=== PATIENT | female | born 1970 | race Caucasian/White ===

== ENCOUNTER 2018-07-11 11:26 | Observation (INO) | payer OTHER ==
[~2018-07-11 11:26] MED LIST: DEXAMETHASONE SOD PHOS 4 MG/ML VIAL ONE; FAMOTIDINE 20 MG/2 ML VIAL ONE; FENTANYL CITRATE/PF 250 MCG/5 ML INJ. ONE; HYDROmorphone HCL/PF 2 MG/ML VIAL ONE; LACTATED RINGERS 1,000 ML IV.SOLN IV ONE; LIDOCAINE HCL 2% PF 100MG/5ML VIAL IJ ONE; MIDAZOLAM HCL 2 MG/2 ML VIAL ONE; MORPHINE SULFATE 10 MG/ML VIAL ONE; ONDANSETRON HCL/PF 4 MG/ 2ML VIAL ONE; PROPOFOL 200 MG/20 ML VIAL IV ONE; ROCURONIUM BROMIDE 10 MG/ML 5ML VIAL ONE; SCOPOLAMINE HYDROBROMIDE 1.5MG/72HR PATCH TD ONE; SEVOFLURANE 250 ML LIQUID IH ONE; SUGAMMADEX SODIUM 200 MG/2 ML VIAL IV ONE; ceFAZolin SODIUM 1 GM VIAL ONE; fentaNYL CITRATE/PF 100 MCG/2 ML INJ. ONE
[2018-07-11] MEDS ORDERED: LACTATED RINGERS 1,000 ML IV ONE ×2 (11:35→11:47)
[2018-07-11] MEDS ORDERED: SCOPOLAMINE HYDROBROMIDE 1.5MG/72HR PATCH TD ONE (11:47)
[2018-07-11] MEDS ORDERED: FAMOTIDINE 20 MG/2 ML VIAL ONE (11:48)
[2018-07-11] MEDS ORDERED: fentaNYL CITRATE/PF 100 MCG/2 ML INJ. ONE (15:49)
[2018-07-11] MEDS ORDERED: HYDROmorphone HCL/PF 2 MG/ML VIAL ONE (15:58)
[2018-07-11] MEDS ORDERED: MORPHINE SULFATE 10 MG/ML VIAL ONE (16:17)
[2018-07-11] MEDS ORDERED: PROMETHAZINE HCL 25 MG in 0.9 % SODIUM CHLORIDE 50 ML IV PRN (16:55)
[2018-07-11] MEDS ORDERED: ONDANSETRON HCL/PF 4 MG/ 2ML VIAL IVP PRN (16:55)
[2018-07-11] MEDS ORDERED: DIAZEPAM 5 MG TABLET PO PRN (16:55)
[2018-07-11] MEDS ORDERED: diphenhydrAMINE HCL 25 MG TABLET PO PRN (16:55)
[2018-07-11] MEDS ORDERED: LEVALBUTEROL HCL 1.25 MG/3 ML VIAL.NEB IH PRN (16:55)
--- NOTE | 2018-07-11 17:19 | History and Physical Report ---
History of Present Illnes - History of Present Illness Reason for Visit: S/P Lumbar Total Disc Replacement L5S1 History of Present Illness: Patient is a 48-year-old female being admitted observation s/p lumbar total disc replacement of L5S1. She has an extensive history of back pain with numerous treatments including; injections, medications and other interventions. It was decided by patient and surgeon to move forward with lumbar surgical procedure. Patient is lying on her left side in bed- she requesting her Percocet and Gabapentin in combination with stronger narcotics- explained that we would start with her combination and implement Toradol for inflammation. Explained that we would get her up and walk, would try clear liquid diet and advance as tolerated to accomplish goals to discharge home tomorrow. 20:30 pt lying in bed on her side eating- no acute distress- still refusing to get up and walk- stating that she is still in too much pain as she continues to eat- explained the importance of getting up and walking- she states if we give her more pain meds she will try. - Past Medical History Psych: Anxiety, Depression Musculoskeletal: Chronic low back pain, Other (degenerative disc disease) Rheumatologic: Fibromyalgia Endocrine: Hypothyroidism - Past Surgical History Past Surgical History: Hysterectomy, Other (CTR), Tubal Ligation, Other (shoulder) - Past Family History Mother Family History: Other (colon polyps) Father Family History: DM, Hypertension - Past Social History Smoke: No Alcohol: None Drugs: None Lives: With Family Domestic Violence: Negative - Health Maintenance Health Maintenance: Cholesterol, Tetanus Influenza Vaccine: Current for this Influenza Season Pneumonia Vaccine: No Resuscitation Status: Resusciation Status Resuscitation Status Full Code - Unable to Obtain History Unable to Obtain: No Review of Systems - Review of Systems Constitutional: negative: Fever, Chills Eyes: negative: pain, vision change ENT: negative: Ear Pain, Nose Pain, Throat Pain Respiratory: negative: Cough, Shortness of Breath Cardiovascular: negative: Chest Pain, Light Headedness Gastrointestinal: negative: Nausea, Abdominal Pain Genitourinary: negative: Dysuria Musculoskeletal: Back Pain Skin: negative: Rash Neurological: negative: Numbness - Medications/Allergies Allergies/Adverse Reactions: Allergies Allergy/AdvReac Type Severity Reaction Status Date / Time Sulfa (Sulfonamide Allergy Unknown Verified 07/11/18 17:17 Antibiotics) Current Inpatient Medications: Current Inpatient Medications Acetaminophen (Tylenol Extra Strength) 500 mg PO Q4 PRN PRN Reason: for mild pain 1-4/fever Baclofen (Lioresal) 10 mg PO TID [facility] Clonazepam (Klonopin) 0.5 mg PO DAILY [facility] Diazepam (Valium) 5 mg PO Q8H PRN PRN Reason: Anxiety/muscle spasm Diphenhydramine HCl (Benadryl) 25 mg PO Q4 PRN PRN Reason: Itching or Pruritis Gabapentin (Neurontin) 300 mg PO TID [facility] Heparin Sodium (Porcine) (Heparin) 5,000 unit SQ Q12 AGUSTIN Potassium Chloride/Dextrose/Sod Cl ([id number]) 1,000 mls @ 75 mls/hr IV Q12H AGUSTIN Promethazine HCl 25 mg/ Sodium (Chloride) 51 mls @ 600 mls/hr IV Q6 PRN PRN Reason: Nausea / Vomiting Stop: 07/15/18 16:54 Ketorolac Tromethamine (Toradol) 15 mg IVP Q6 PRN PRN Reason: For Mild Pain 1-4 Stop: 07/15/18 16:54 Levalbuterol HCl (Xopenex Inh Soln) 1.25 mg IH Q4H PRN PRN Reason: shortness of breath Miscellaneous (Levothyroxine Sodium [Levothyroxine Sodium]) 75 mcg PO DAILY [facility] Miscellaneous (Liothyronine Sodium [Liothyronine Sodium]) 5 mcg PO DAILY [facility] Ondansetron HCl (Zofran 4 Mg/2 Ml) 4 mg IVP Q6H PRN PRN Reason: Nausea / Vomiting Stop: 07/15/18 16:54 Oxycodone/Acetaminophen (Percocet 5-325 Mg Tablet) 1 each PO Q4 PRN PRN Reason: For pain 1-4 out of 10 Exam - Exam General: Alert, Oriented to Person, Oriented to Place, Oriented to Time, Moderate distress HEENT: Atraumatic, PERRLA, Mouth Mucous membr. moist/[place], Nose Mucous membr. moist/[place] Neck: Normal Range of Motion Lungs: Clear to auscultation, Normal air movement, Speaks full Sentences Cardiovascular: Regular rate, Normal S1, Normal S2 Peripheral Edema: none Peripheral Pulses: 2+ Abdomen: Soft, Decreased Bowel Sounds Integumentary: Normal, [place], Warm, Dry Extremities: Normal pulses, No tenderness/swelling Neurological: Normal speech, Strength Equal Bilat, Sensation intact Psych/Mental Status: Mental status NL, Mood NL, Appropriate Affect Assessment/Plan - Assessment/Plan (1) Status post lumbar surgery Status: Acute Current Visit: Yes Assessment: Incision site dressed (intact/dry). Neurovasculars intact including sensation. 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 Will start patient on clear liquid diet and advance as tolerated. Plan: Nursing will complete neuro checks frequently, SCDs while in bed, frequent ambulation, frequent use of incentive spirometer, heparin q 12 hours (2) Degenerative disc disease at L5-S1 level Status: Acute Current Visit: Yes Assessment: S/P lumbar total disc replacement of L5S1 Plan: Will treat pain appropriately (3) Fibromyalgia Status: Acute Current Visit: Yes Assessment: Stable on home meds Plan: continue home medications (4) Anxiety and depression Status: Acute Current Visit: Yes Assessment: Stable on home meds- Plan: Will continue on home meds VTE Assessment - RISK FACTOR SCORE VTE RISK FACTOR SCORES: AGE 40-60 YEARS, MAJOR SURGERY/ANESTHESIA TIME > 1 HOUR - RISK VTE MODERATE RISK: SCORE OF 2 (RISK PROXIMAL DVT 2-4%) PROPHYAXIS NEEDED (Heparin subq q 12h, frequent ambulation, SCDs while in bed)
[2018-07-11] MEDS: POTASSIUM CHLOR 20 MEQ D51/2NS 1,000 ML IV SCH (17:31)
[2018-07-11] MEDS: KETOROLAC TROMETHAMINE 30 MG/1ML VIAL IVP PRN (17:32)
[2018-07-11] MEDS: GABAPENTIN 300 MG CAPSULE PO SCH (17:44)
[2018-07-11] MEDS: BACLOFEN 10 MG TABLET PO SCH (17:45)
[2018-07-11] MEDS: oxyCODONE/ACETAMINOPHEN 5/325 TABLET PO PRN (18:32)
[2018-07-11 18:45] VITALS: BMI 19.8
[2018-07-11] MEDS ORDERED: MORPHINE SULFATE 4 MG/ML VIAL IVP PRN (20:14)
[2018-07-11] MEDS ORDERED: TIZANIDINE HCL 4 MG PO PRN (20:31)
[2018-07-11] MEDS: HEPARIN SODIUM 5000 UNIT/1 ML SQ SCH (21:32)
[2018-07-11] MEDS ORDERED: TIZANIDINE HCL 4 MG TABLET PO ONE (21:53)
[2018-07-11] MEDS ORDERED: RED CRASH CART TAGS 1 EACH MC ONE (22:25)
[2018-07-12] MEDS: oxyCODONE/ACETAMINOPHEN 5/325 TABLET PO PRN ×3 (02:52→11:40)
[2018-07-12] MEDS: ACETAMINOPHEN 500 MG TABLET PO PRN ×2 (05:24→05:29)
[2018-07-12] MEDS: POTASSIUM CHLOR 20 MEQ D51/2NS 1,000 ML IV SCH (05:29)
[2018-07-12] MEDS: KETOROLAC TROMETHAMINE 30 MG/1ML VIAL IVP PRN (06:07)
[2018-07-12] MEDS ORDERED: LEVOTHYROXINE SODIUM 25 MCG TABLET PO SCH (07:00)
[2018-07-12 07:13] LABS: BASOPHILS % 0.5 (0.0-1.5); MEAN CORPUSCULAR HEMOGLOBIN 31.7 pg (28.0-34.0); MONOCYTES % 4.7 % (0.0-11.0); NEUTROPHILS # 13.5 # k/uL (1.4-7.7)
[2018-07-12 07:21] LABS: eGFR (Non-African) > 60
[2018-07-12] MEDS: GABAPENTIN 300 MG CAPSULE PO SCH ×2 (07:46→12:28)
[2018-07-12] MEDS: BACLOFEN 10 MG TABLET PO SCH ×2 (07:50→12:28)
[2018-07-12] MEDS ORDERED: TIZANIDINE HCL 4 MG TABLET PO PRN (08:00)
[2018-07-12] MEDS ORDERED: clonazePAM 0.5 MG TABLET PO SCH (09:00)
[2018-07-12] MEDS ORDERED: LIOTHYRONINE SODIUM 5 MCG PO SCH (09:00)
[2018-07-12 09:27] VITALS: BP 96/55
[2018-07-12] MEDS: HEPARIN SODIUM 5000 UNIT/1 ML SQ SCH (09:53)
--- NOTE | 2018-07-12 10:01 | Discharge Summary ---
Discharge Summary - Discharge Sumary History of Present Illness: 48 year old female with chronic low back pain and neural claudication who presented for total disc replacement by Dr. Maldonado. This was performed on July 11, [address] Maldonado. She did not have any operative complications. She had some pain with ambulation initially, however this improved the next day. Condition at Discharge: Stable Home Medications: Ambulatory Orders Medication Instructions Recorded Baclofen 10 mg PO TID 07/11/18 Clindamycin Phos/Benzoyl Perox 25 gm TP BID 07/11/18 [Benzaclin Gel] Clonazepam 0.5 mg PO DAILY 07/11/18 Ergocalciferol (Vitamin D2) 50,000 unit PO WEEK 07/11/18 [Vitamin D2] Gabapentin [Neurontin] 300 mg PO TID 07/11/18 Levothyroxine Sodium 75 mcg PO DAILY 07/11/18 Lidocaine [Lidoderm] 1 patch TP DAILY 07/11/18 Liothyronine Sodium 5 mcg PO DAILY 07/11/18 Montelukast Sodium [Singulair] 10 mg PO HS 07/11/18 Oxycodone HCl [Oxaydo] 7.5 mg PO TID 07/11/18 Tizanidine HCl 4 mg PO Q6 PRN 07/11/18 Valacyclovir HCl [Valtrex] 1,000 mg PO DAILY 07/11/18 Consultations this Visit: None Procedures this Visit: Other (Total disc replacement L5S1) Allergies/Adverse Reactions: Allergies Allergy/AdvReac Type Severity Reaction Status Date / Time Sulfa (Sulfonamide Allergy Unknown Verified 07/11/18 17:17 Antibiotics) Patient Problems: Current Active Problems Problem Status Onset Anxiety and depression Acute Degenerative disc disease at L5-S1 level Acute Fibromyalgia Acute Status post lumbar surgery Acute Discharge Summary: Surgery was performed as above with Dr. Maldonado on 07/11/18. No complications were noted. It was noted that her blood sugar was 204 on the morning of admission, and I recommended that she discuss this with her family physician when she follows up with him due to her markedly positive family history for diabetes. She will follow up with Dr. Maldonado on 07/21/18 at 1:30 as scheduled.
== END 2018-07-12 12:50 | disposition home or self-care (01) ==
LOC: SOUTH 11:26 → UNDOADMOB 16:45 → SOUTH 16:45 → UNDODISOB 07-12 12:50
PROVIDERS: ADMIT Nurse Practitioner Family; ATTEND Nurse Practitioner Family
DX: M51.27 Other intervertebral disc displacement, lumbosacral region (principal); M51.37 Other intervertebral disc degeneration, lumbosacral region; M79.7 Fibromyalgia; F32.9 Major depressive disorder, single episode, unspecified; F41.9 Anxiety disorder, unspecified
CPT/HCPCS: 22857; 80048; 85025; 97116; 97161; 97165; 97535; A9270; G0378; G0379; J0690; J1100; J1170; J1644; J1885; J2001; J2250; J2270; J2405; J2704; J3010; J7070; J7120; S0028; 36415; 86885; 86900; 86920; 99217; 99218; P9040